=== PATIENT | female | born 1975 | race Caucasian/White ===

== ENCOUNTER 2021-06-12 08:34 | Emergency (ER) | payer OTHER, SELFPAY ==
--- NOTE | ~2021-06-12 | XR_ITS ---
EXAMINATION: XR elbow RT min 3V EXAM DATE: 06/12/2021 10:32 INDICATION: decreased ROM with fall . Initial encounter. TECHNIQUE: Right elbow frontal, lateral with flexion, and oblique projections obtained and reviewed. Correlation is made to forearm examination same date. FINDINGS: Right elbow anterior humeral line intact. There is a large right elbow joint effusion. Th ere is no fracture identified. No radiopaque foreign bodies identified. IMPRESSION: 1. Large right elbow joint effusion. 2. No acute fracture identified. Reviewed, dictated and finalized at location A.
--- NOTE | ~2021-06-12 | XR_ITS ---
XR wrist RT 2V DATE: 06/12/2021 09:05 INDICATION: Fall, right forearm and wrist injury, pain TECHNIQUE: AP and lateral views COMPARISON: None FINDINGS: No fracture or dislocation, periosteal reaction or bone destruction. IMPRESSION: Negative Reviewed, dictated and finalized at location B. IMPRESSION: Negative
--- NOTE | ~2021-06-12 | XR_ITS ---
XR forearm RT 2V DATE: 06/12/2021 09:05 INDICATION: Fall. Jammed right arm. Right arm pain. TECHNIQUE: AP and lateral views COMPARISON: None FINDINGS: No fracture or dislocation, periosteal reaction or bone destruction. Normal alignment at th e elbow and wrist joints. IMPRESSION: Negative Reviewed, dictated and finalized at location B. IMPRESSION: Negative
[2021-06-12 09:08] VITALS: BP 148/68; PULSE 94; RESP 18; O2SAT 99
--- NOTE | 2021-06-12 09:52 | ED.GENADULT ---
HPI - General Adult General Chief complaint: Extremity Injury, Upper <LANI Seo Last Filed: 06/12/21 11:05> Stated complaint: r arm pain <LANI Seo Last Filed: 06/12/21 11:05> Time Seen by Provider: 06/12/21 09:20 <LANI Seo Last Filed: 06/12/21 11:05> Source: patient <LANI Seo Last Filed: 06/12/21 11:05> Mode of arrival: ambulatory <LANI Seo Last Filed: 06/12/21 11:05> Limitations: no limitations <LANI Seo Last Filed: 06/12/21 11:05> History of Present Illness HPI narrative: Patient presents with chief complaint of pain to the right wrist forearm and elbow that has worsened since last night when she slipped and fell while walking along the bike trail. Patient states she twisted her left ankle as well, but it does not have any pain or discomfort to the ankle. She also reports bruising to left thumb w/o shanelle tenderness of loss of ROM. Her greatest discomfort is to the right wrist and right elbow. Patient reports that she cannot fully extend the right elbow. She denies any head impact or loss of consciousness. <LANI Seo Last Filed: 06/12/21 11:05> Related Data Home medications: Home Medications Medication Instructions Recorded Confirmed drospirenone 3 mg-ethinyl 1 tablet PO DAILY 07/20/19 03/14/21 estradiol 0.02 mg tablet <LANI Seo Last Filed: 06/12/21 11:05> Allergies/adverse reactions: Allergies Allergy/AdvReac Type Severity Reaction Status Date / Time dapagliflozin Allergy Unknown Unknown Verified 03/14/21 12:02 meperidine Allergy Unknown Diarrhea Verified 03/14/21 12:02 metformin Allergy Unknown Unknown Verified 03/14/21 12:02 Penicillins Allergy Unknown Unknown Verified 03/14/21 12:02 <LANI Seo Last Filed: 06/12/21 11:05> Review of Systems Review of Systems: CONSTITUTIONAL: Denies fever, chills, or sweats. EYES: Denies visual changes, redness, or discharge. ENT: Denies rhinorrhea, congestion, sore throat, or otalgia. CARDIOVASCULAR: Denies chest pain, palpitations, or edema. RESPIRATORY: Denies cough or dyspnea. GASTROINTESTINAL: Denies abdominal pain, nausea, vomiting, or diarrhea. GENITOURINARY: Denies dysuria or hematuria. SKIN: Reports bruising and abrasion denies rash or itching. MUSCULOSKELETAL: Reports shoulder and wrist pain denies back pain, joint pain, or myalgia. NEUROLOGIC: Denies headache, numbness, dizziness, or weakness. PSYCHIATRIC: Denies anxiety or depression. <Michelle Marshall PA-C - Last Filed: 06/12/21 11:05> [facility] Past Medical History Medical History: Medical History Diabetes Multinodular goiter <Michelle Marshall PA-C - Last Filed: 06/12/21 11:05> Family History Family History: Family History Mother Diabetes mellitus Hypertension Sibling Diabetes mellitus Father Hypertension Family history of cardiovascular disease Other Cerebrovascular accident Family history of arthritis Family history of chronic obstructive pulmonary disease Family history of congestive heart failure Family history of glaucoma Family history of kidney disease Family history of lung disease Family history of obesity Family history of osteoporosis Family history of seizure disorder Family history of thyroid disease <Michelle Marshall PA-C - Last Filed: 06/12/21 11:05> Social History Social History: Social History Smoking status: Former smoker (Quit 23 years ago) Second hand tobacco smoke exposure: No Smoking end date: 08/30/94 Alcohol intake: current Alcohol use details: drinks 1 glass of liquor occansionally Substance use: never Substance use type: does not use <Michelle Marshall PA-C - Last Filed: 06/12/21
[2021-06-12] MEDS: IBUPROFEN 600 MG TABLET PO (10:45)
== END 2021-06-12 11:32 | disposition home or self-care (01) ==
PROVIDERS: Emergency Provider Emergency Medicine; PCP Family Medicine
DX: S63.501A Unspecified sprain of right wrist, initial encounter (principal); M25.421 Effusion, right elbow; Z87.891 Personal history of nicotine dependence
CPT/HCPCS: 73080; 73090; 73100; 99284; A4565; A9270

== ENCOUNTER → 2021-08-06 11:15 | Outpatient (CLI) | payer OTHER, SELFPAY ==
--- NOTE | ~2021-08-06 | US_ITS ---
EXAMINATION: US thyroid EXAM DATE: 08/06/2021 11:42 INDICATION: Nontoxic single thyroid nodule. TECHNIQUE: Multiple grayscale and Doppler images of the thyroid were obtained (by a technologist who performed the scan) and subsequently reviewed. Individual nodules and recommendations may be reporte d in accordance with TI-RADS system as designated by the 2017 ACR White Paper TI-RADS committee. Comp joão is made to prior examination from 07/04/2018. FINDINGS: Right thyroid lobe measures 8.0 x 3.5 x 5.0 cm, the left measuring 7.8 x 3.6 x 3.4 cm. These dimensio ns are severely enlarged and have increased in size compared to previous examination. Again there are multiple thyroid nodules in both thyroid lobes, largest in the left thyroid lobe isoe choic, TR 3 measuring 4.0 x 3.4 x 2.8 cm (previously 3.4 x 2.6 x 2.8 cm). Largest in the right thyroid lobe is hypoechoic, category TR 4 measuring 4.9 x 2.1 x 3.0 cm, uncertai n whether or not this was present on previous examination given that nodules present at that time wer e essentially isoechoic. This nodule should be biopsied given size, category, possibility of it being new, and different imaging characteristics to the other thyroid nodules. IMPRESSION: Multinodular goiter with right thyroid lobe category TR 4 nodule which may or may not hav e been present on prior study, and which is substantially more hypoechoic than the other nodules. Rec ommend ultrasound-guided FNA. Reviewed, dictated and finalized at location A. R IMPRESSION: Multinodular goiter with right thyroid lobe category TR 4 nodule wh ich may or may not have been present on prior study, and which is substantially more hypoechoic than the other nodules. Recommend ultrasound-guided FNA.
== END ==
PROVIDERS: PCP Physician Assistant; Visit Provider Internal Medicine Endocrinology, Diabetes & Metabolism
DX: E04.9 Nontoxic goiter, unspecified (principal)
CPT/HCPCS: 76536

== ENCOUNTER → 2021-08-06 16:51 | Outpatient (CLI) | payer OTHER, SELFPAY ==
--- NOTE | ~2021-08-06 | MM_ITS ---
EXAMINATION: MM screening edouard BI w levi HISTORY: Screening TECHNIQUE: Craniocaudal and mediolateral oblique 3-D tomosynthesis images were obtained and synthetic 2-D images were generated. CAD analysis was submitted and interpreted. COMPARISON: Comparison to multiple prior studies sequentially, with oldest reviewed study dated 12/07. BREAST PARENCHYMAL COMPOSITION: There are scattered areas of fibroglandular density. FINDINGS: There is no evidence of suspicious mass, calcification, or architectural distortion to sugg est malignancy in either breast. There has been no suspicious interval change. IMPRESSION: 1. No mammographic evidence of malignancy. 2. Recommend routine screening mammography in one year. BI-RADS Category 1: Negative Reviewed, dictated and finalized at location A. 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
== END ==
PROVIDERS: PCP Physician Assistant; Visit Provider Nurse Practitioner
DX: Z12.31 Encounter for screening mammogram for malignant neoplasm of breast (principal)
CPT/HCPCS: 77063; 77067

== ENCOUNTER 2021-11-12 08:27 | Outpatient (CLI) | payer OTHER, SELFPAY ==
--- NOTE | ~2021-11-12 | NM_ITS ---
EXAMINATION: NM thyroid scan w uptake DATE: 11/13/2021 11:00 INDICATION: Multinodular goiter. COMPARISON: Thyroid scintigraphy 07/03/2010, ultrasound 08/06/2021 TECHNIQUE: 0.1-0.4 mCi I-123 was administered orally. Scintigraphic images of the thyroid gland were obtained at 24 hours. Thyroid uptake was calculated by the technologist. FINDINGS: The thyroid uptake is 13% (normal 10-30%), with the right lobe measuring 11% uptake and the left 23%. There is heterogeneous activity in the thyroid correlating with a multinodular goiter by ultrasound IMPRESSION: 1. Normal 24-hour iodine uptake. 2. Multinodular goiter. Reviewed, dictated and finalized at location A.
== END 2021-11-12 08:28 | disposition home or self-care (01) ==
PROVIDERS: PCP Family Medicine; Visit Provider Internal Medicine Endocrinology, Diabetes & Metabolism
DX: E04.2 Nontoxic multinodular goiter (principal)
CPT/HCPCS: 78014; A9516

== ENCOUNTER 2023-12-07 12:49 | Outpatient (CLI) | payer OTHER, SELFPAY ==
--- NOTE | ~2023-12-07 | MM_ITS ---
EXAMINATION: MM screening edouard BI w levi HISTORY: Screening mammogram TECHNIQUE: Craniocaudal and mediolateral oblique 3-D tomosynthesis images were obtained and synthetic 2-D images were generated. CAD analysis was submitted and interpreted. COMPARISON: 08/06/2021 bilateral screening mammogram BREAST PARENCHYMAL COMPOSITION: There are scattered areas of fibroglandular density. FINDINGS: Occasional benign calcifications. Stable post biopsy scarring on the left. There is no evid ence of suspicious mass, calcification, or architectural distortion to suggest malignancy in either b reast. There has been no suspicious interval change. IMPRESSION: 1. No mammographic evidence of malignancy. 2. Recommend routine screening mammography in one year. BI-RADS Category 2: Benign finding(s). Reviewed, dictated and finalized at location A.
== END 2023-12-07 12:50 ==
LOC: MICIMG 12:50
PROVIDERS: PCP Nurse Practitioner; Visit Provider Nurse Practitioner
DX: Z12.31 Encounter for screening mammogram for malignant neoplasm of breast (principal)
CPT/HCPCS: 77063; 77067

== ENCOUNTER 2025-01-16 15:18 | Outpatient (CLI) | payer OTHER, SELFPAY ==
--- NOTE | ~2025-01-16 | MM_ITS ---
EXAMINATION: MM screening edouard BI w levi HISTORY: Screening TECHNIQUE: Craniocaudal and mediolateral oblique 3-D tomosynthesis images were obtained and synthetic 2-D images were generated. CAD analysis was submitted and interpreted. COMPARISON: Comparison to multiple prior studies sequentially, with oldest reviewed study dated 07/31. BREAST PARENCHYMAL COMPOSITION: Not dense: There are scattered areas of fibroglandular density. FINDINGS: The breasts are stable. No suspicious masses, calcifications or architectural distortion in either breast to suggest malignancy. Stable architectural distortion lower central left breast, like ly corresponding to prior excisional biopsy site. IMPRESSION: 1. No mammographic evidence for malignancy in either breast. 2. Routine yearly screening mammogram and regular clinical breast examination are recommended. BI-RADS Category 2: Benign finding(s). Reviewed, dictated and finalized at location B. IMPRESSION: 1. No mammographic evidence for malignancy in either breast. 2. Routine yearly screening mammogram and regular clinical breast examination a re recommended. BI-RADS Category 2: Benign finding(s).
== END 2025-01-16 15:19 | disposition home or self-care (01) ==
LOC: MICIMG 15:19
PROVIDERS: PCP Family Medicine; Visit Provider Obstetrics & Gynecology Gynecology
DX: Z12.31 Encounter for screening mammogram for malignant neoplasm of breast (principal)
CPT/HCPCS: 77063; 77067